=== PATIENT | female | born 1960 | race Caucasian/White ===

== ENCOUNTER 2021-08-02 18:27 | Emergency (ER) | payer BC ==
--- NOTE | 2021-08-02 19:42 | RAD REPORT ---
EXAM DESCRIPTION: RAD - Chest Single View - 08/02/2021 7:35 pm CLINICAL HISTORY: cough, fever Chest pain. COMPARISON: CHEST PA AND LAT 2 VIEW dated 05/22/2009; CHEST SINGLE VIEW dated 05/12/2003 FINDINGS: Portable technique limits examination quality. The lungs are emphysematous but grossly clear. The heart is normal in size. No displaced fractures. IMPRESSION: Prominent COPD.
[2021-08-02] MEDS ORDERED: LEVALBUTEROL 1.25 MG/3 ML NEB ONE (21:59)
[2021-08-02 22:28] LABS: Absolute Lymphocytes (CBC) 2.3 K/uL (0.7-4.9); Hematocrit 44.9 % (36.0-45.0); Lymphocytes % 14.6 % (15.3-44.8); MPV 9.4 fL (7.6-11.3); RBC Red Blood Cell Count 5.54 M/uL (3.86-4.86)
[2021-08-02 22:51] LABS: Albumin 3.5 g/dL (3.4-5.0); Bilirubin Total 0.6 mg/dL (0.2-1.0); Protein, Total 8.3 g/dL (6.4-8.2)
[2021-08-02 22:54] LABS: Potassium 2.9 mmol/L (3.5-5.1)
[2021-08-02] MEDS ORDERED: IBUPROFEN 400 MG TAB ONE (23:01)
--- NOTE | 2021-08-03 00:36 | EDPHYS ---
Physician Documentation [facility] Name: Amy Luna Age: 61 yrs Sex: Female : 1960 Arrival Date: 08/02/2021 Time: 18:29 Bed 27 Private MD: ED Physician Kingsley Sanches HPI: 08/02 18:52 This 61 yrs old Female presents to ER via Wheelchair with complaints of Sore Throat, jmm Cough, Chest Congestion, Fever. 18:52 The patient presents with sore throat. Onset: The symptoms/episode began/occurred jmm gradually. This is a 61 year old female with a history of narcolepsy that presents to the ED with complaints of sore throat, hemoptysis, cough, beginning approx 3 days ago. Patient states she was seen at another ER last night but left due to the wait time. . Historical: - Allergies: 18:56 Imitrex; vg1 - PMHx: 18:56 Osteoporosis; Narcolepsy; vg1 - PSHx: 18:56 Thyroidectomy; vg1 - Immunization history:: Client reports receiving the 2nd dose of the Covid vaccine. - Social history:: Smoking status: Patient/guardian denies using tobacco, the patient reports quitting approximately 5 years ago. ROS: 18:52 Constitutional: Positive for body aches. jmm 18:52 Respiratory: Positive for cough. 18:52 Abdomen/GI: Positive for nausea. 18:52 All other systems are negative. Exam: 18:52 Constitutional: This is a well developed, well nourished patient who is awake, alert, jmm and in no acute distress. Head/Face: atraumatic. Eyes: EOMI, no conjunctival erythema appreciated 18:52 Neck: Trachea midline, Supple Chest/axilla: Normal chest wall appearance and motion. 18:52 Abdomen/GI: Non distended, soft Back: Normal ROM Skin: General appearance color normal MS/ Extremity: Moves all extremities, no obvious deformities appreciated, no edema noted to the lower extremities Neuro: Awake and alert Psych: Behavior is normal, Mood is normal, Patient is cooperative and pleasant 18:52 ENT: Posterior pharynx: erythema, that is mild. 18:52 Cardiovascular: Rate: normal, Rhythm: regular, Pulses: no pulse deficits are appreciated. Vital Signs: 18:51 BP 138 / 80; Pulse 108; Resp 20; Temp 100.5(O); Pulse Ox 94% on R/A; Weight 104.33 kg; vg1 Height 5 ft. 5 in. (165.10 cm); Pain 8/10; 23:20 BP 122 / 71; Pulse 113; Resp 20; Pulse Ox 92% on R/A; [facility] [place] 08/03 00:00 BP 122 / 64; Pulse 111; Resp 18; Temp 98.4(O); Pulse Ox 95% on R/A; [facility] [place] 08/02 18:51 Body Mass Index 38.27 (104.33 kg, 165.10 cm) vg1 MDM: 08/02 19:38 Patient medically screened. [facility] 08/03 00:35 Data reviewed: vital signs, nurses notes. Counseling: I had a detailed discussion with [facility] the patient and/or guardian regarding: the historical points, exam findings, and any diagnostic results supporting the discharge/admit diagnosis, radiology results, the need for outpatient follow up, to return to the emergency department if symptoms worsen or persist or if there are any questions or concerns that arise at home. 00:35 ED course: Patient is alert and non toxic in appearance in the ED. No signs of resp [facility] distress. Patient given strict return precautions. Patient understood and agrees with the plan of care. . 08/02 18:51 Order name: Influenza Screen (a \\T\\ B); Complete Time: 20:45 [facility] 08/02 18:51 Order name: SARS-COV-2 RT PCR (Document "Date of Onset" if Symptomatic); Complete Time: [facility] 21:02 08/02 18:51 Order name: Strep; Complete Time: 20:45 [facility] 08/02 20:46 Order name: Throat Culture [facility] 08/02 20:48 Order name: CBC with Diff; Complete Time: 22:34 [facility] 08/02 20:48 Order name: CMP; Complete Time: 22:54 [facility] 08/02 18:51 Order name: Chest Single View XRAY; Complete Time: 19:46 [facility] 08/02 20:48 Order name: CT Chest For PE Angio [facility] Administered Medications: 08/02 21:55 Drug: Xopenex (levalbuterol) (3) 1.25 mg Route: Inhalation; [facility] [place] 22:56 Drug: Ibuprofen 400 mg Route: PO; [facility] [place] 08/03 00:46 Drug: LevaQUIN (levofloxacin) 750 mg Route: PO; jb4 Disposition Summary: 08/03/21 00:36 Discharge Ordered Location: Home [facility] Condition: Stable [facility] Diagnosis - Unspecified bacterial pneumonia [facility] Followup: ken[place] - With: Private Physician - When: 2 - 3 days - Reason: Recheck today's complaints, Continuance of care, Re-evaluation by your physician Discharge Instructions: - Discharge Summary Sheet [facility] - Community-Acquired Pneumonia, Adult [facility] Forms: - Medication Reconciliation Form [facility] - Work release form [facility] - Thank You Letter [facility] - Antibiotic Education [facility] - Prescription Opioid Use [facility] Prescriptions: - albuterol sulfate 90 mcg/actuation Inhalation HFA aerosol inhaler - inhale 2 puff by INHALATION route every 4 hours; 1 Pump; Refills: 0, Product [facility] Selection Permitted - levofloxacin 750 mg Oral Tablet - take 1 tablet by ORAL route once daily; 10 tablet; Refills: 0, Product [facility] Selection Permitted Signatures: Dispatcher [employer] EDHugo Sparks PA PA jmm Bryson, James, RN RN jb4 Nicole Perkins RN RN vg1 Corrections: (The following items were deleted from the chart) 08/02 18:59 18:56 Social history: Smoking status: Patient denies any tobacco usage or history of. vg1 vg1
--- NOTE | 2021-08-03 00:36 | ER ---
Nurse's Notes [facility] Name: Amy Luna Age: 61 yrs Sex: Female : 1960 Arrival Date: 08/02/2021 Time: 18:29 Bed 27 Private MD: Diagnosis: Unspecified bacterial pneumonia Presentation: 08/02 18:51 Chief complaint: Patient states: sore throat, cough, congestion, fever, and body aches vg1 x 3 days. States blood tinged mucous and headache. Coronavirus screen: Vaccine status: Patient reports receiving the 2nd dose of the covid vaccine. Client denies travel out of the [place] in the last 14 days. Ebola Screen: Patient denies exposure to infectious person. Patient denies travel to an Ebola-affected area in the 21 days before illness onset. Initial Sepsis Screen: Does the patient meet any 2 criteria? No. Patient's initial sepsis screen is negative. Does the patient have a suspected source of infection? No. Patient's initial sepsis screen is negative. Risk Assessment: Do you want to hurt yourself or someone else? Patient reports no desire to harm self or others. Onset of symptoms was July 30, 2021. 18:51 Method Of Arrival: Wheelchair vg1 18:51 Acuity: RANJIT 3 vg1 Triage Assessment: 18:56 General: Appears uncomfortable, Behavior is crying. Pain: Complains of pain in vg1 generalized body Pain currently is 7 out of 10 on a pain scale. EENT: Throat is reddened. Historical: - Allergies: 18:56 Imitrex; vg1 - PMHx: 18:56 Osteoporosis; Narcolepsy; vg1 - PSHx: 18:56 Thyroidectomy; vg1 - Immunization history:: Client reports receiving the 2nd dose of the Covid vaccine. - Social history:: Smoking status: Patient/guardian denies using tobacco, the patient reports quitting approximately 5 years ago. Screenin:00 Abuse screen: Denies threats or abuse. Nutritional screening: No deficits noted. jb4 Tuberculosis screening: No symptoms or risk factors identified. Fall Risk None identified. Assessment: 23:20 Reassessment: Patient appears in no apparent distress at this time. Patient and/or jb4 family updated on plan of care and expected duration. Pain level reassessed. Patient is alert, oriented x 3, equal unlabored respirations, skin warm/dry/pink. 08/03 00:46 Reassessment: Patient appears in no apparent distress at this time. Patient and/or jb4 family updated on plan of care and expected duration. Pain level reassessed. Patient is alert, oriented x 3, equal unlabored respirations, skin warm/dry/pink. Vital Signs: 08/02 18:51 BP 138 / 80; Pulse 108; Resp 20; Temp 100.5(O); Pulse Ox 94% on R/A; Weight 104.33 kg; vg1 Height 5 ft. 5 in. (165.10 cm); Pain 8/10; 23:20 BP 122 / 71; Pulse 113; Resp 20; Pulse Ox 92% on R/A; jb4 08/03 00:00 BP 122 / 64; Pulse 111; Resp 18; Temp 98.4(O); Pulse Ox 95% on R/A; jb4 08/02 18:51 Body Mass Index 38.27 (104.33 kg, 165.10 cm) vg1 ED Course: 08/02 18:29 Patient arrived in ED. jj6 18:36 Hugo Larose PA is PHCP. jmm 18:36 Kingsley Sanches MD is Attending Physician. [facility] 18:51 Arm band placed on. vg1 18:56 Triage completed. vg1 19:13 COVID swab sent to lab. Flu and/or RSV swab sent to lab. Strep swab sent to lab. vg1 19:37 Chest Single View XRAY In Process Unspecified. EDMS 21:06 Pedro Hill, RN is Primary Nurse. jb4 23:00 Patient has correct armband on for positive identification. Bed in low position. Call jb4 light in reach. Side rails up X 1. Client placed on continuous cardiac and pulse oximetry monitoring. NIBP monitoring applied. residential monitor on. 23:39 CT Chest For PE Angio In Process Unspecified. EDMS 08/03 00:47 No provider procedures requiring assistance completed. IV discontinued, intact, jb4 bleeding controlled, No redness/swelling at site. Pressure dressing applied. Administered Medications: 08/02 21:55 Drug: Xopenex (levalbuterol) (3) 1.25 mg Route: Inhalation; jb4 22:56 Drug: Ibuprofen 400 mg Route: PO; jb4 08/03 00:46 Drug: LevaQUIN (levofloxacin) 750 mg Route: PO; jb4 Medication: 00:00 VIS not applicable for this client. jb4 Outcome: 00:36 Discharge ordered by . [place] 00:47 Discharged to home ambulatory, with family. jb4 00:47 Condition: stable 00:47 Discharge instructions given to patient, Instructed on discharge instructions, follow up and referral plans. medication usage, Demonstrated understanding of instructions, follow-up care, medications, Prescriptions given X 2. 00:59 Patient left the ED. jb4 Signatures: Dispatcher [employer] EDMS Hugo Larose PA PA jmm Bryson, James, RN RN jb4 Nicole Perkins RN RN vg1 Raegan Chenj6 Corrections: (The following items were deleted from the chart) 08/02 18:59 18:56 Social history: Smoking status: Patient denies any tobacco usage or history of. vg1 vg1 19:00 18:51 Acuity: RANJIT 4 vg1 vg1
[2021-08-03] MEDS ORDERED: levoFLOXacin 750 MG TAB ONE (00:50)
[2021-08-03 01:27] VITALS: BP 122/64; TEMP 98.4; O2SAT 95
--- NOTE | 2021-08-05 13:12 | RAD REPORT ---
EXAM DESCRIPTION: CT - Chest For Pe Angio - 08/03/2021 6:37 am CLINICAL HISTORY: Hemoptysis. COMPARISON: None. TECHNIQUE: CTA of the chest was performed following intravenous administration of iodinated contrast . Axial soft tissue and lung window, and coronal and sagittal soft tissue window reconstructions were created and sent to PACS. 3D postprocessing was performed on an independent workstation, with images sent to PACS for subsequen t review. This exam was performed according to our departmental dose-optimization program, which includes autom ated exposure control, adjustment of the mA and/or kV according to patient size and/or use of iterati ve reconstruction technique. FINDINGS: Vascular: Suboptimal opacification of the segmental and subsegmental arteries in the right and left lower lobes due to contrast timing. Within this limitation, no CT evidence of acute pulmona ry thromboembolism. No evidence of aortic aneurysm or dissection. Mild mixed atherosclerosis. Mild to moderate narrowing at the origin of the left subclavian artery due to noncalcified plaque, estimated at approximately 50%. Lungs and pleura: Small multifocal regions of interstitial thickening scattered throughout the lungs, with some associated tree-in-bud nodules. There are a few small scattered additional nodules, the la rgest of which is in the superior segment of the left lower lobe and measures 0.7 x 0.6 cm. No pleura l effusion. No pneumothorax. Mediastinum and neck: Mild mediastinal lymphadenopathy. Unremarkable appearance of the thyroid gland. Cardiac: No cardiomegaly or pericardial effusion. Abdomen: No significant upper abdominal abnormality identified. Musculoskeletal: No concerning osseous abnormality. IMPRESSION: 1. No CTA evidence of acute pulmonary thromboembolism, within the slight limitations o f this exam. 2. Small patchy regions of interstitial thickening and tree-in-bud nodules concerning for infectiou s/inflammatory etiology. 3. Few small scattered pulmonary nodules measuring up to 0.7 cm. Recommend a non-contrast Chest CT at 3-6 months. If patient is high risk for malignancy, recommend an additional non-contrast Chest CT at 18-24 months; if patient is low risk for malignancy a non-contrast Chest CT at 18-24 months is opt ional. 4. These guidelines do not apply to immunocompromised patients and patients with cancer. Follow up in patients with significant comorbidities as clinically warranted. For lung cancer screening, adhere to Lung-RADS guidelines. Reference: Radiology. 2017; 284(1):228-43. Electronically signed by: Wendy Hickman MD 08/03/2021 12:09 AM CDT Due to temporary technical issues with the PACS/Fluency reporting system, reports are being signed by the in house radiologist without review as a courtesy to ensure prompt reporting. The interpreting r adiologist is fully responsible for the content of the report.
== END 2021-08-03 00:59 | disposition home or self-care (01) ==
LOC: ER 18:27
DX: J15.9 Unspecified bacterial pneumonia (principal); Z20.822 Contact with and (suspected) exposure to COVID-19; Z88.8 Allergy status to other drugs, medicaments and biological substances
CPT/HCPCS: 87070; 85025; 36415; 87081; 80053; 87804 ×2; 71275; 71045; 99285; U0003; Q9967